=== PATIENT | male | born 1970 | race Asian ===

== ENCOUNTER 2017-10-27 09:00 | Emergency (ER) | payer SELFPAY ==
[~2017-10-27] VITALS: Ht 165.1 cm; Wt 69.0 kg
[2017-10-27] MEDS ORDERED: LORazepam 1 MG TABLET PO ONE (10:45)
[2017-10-27 11:08] VITALS: BP 129/85
== END 2017-10-27 11:14 | disposition home or self-care (01) ==
LOC: EMS 09:03
DX: F10.20 Alcohol dependence, uncomplicated (principal); I10 Essential (primary) hypertension; F12.90 Cannabis use, unspecified, uncomplicated; F17.210 Nicotine dependence, cigarettes, uncomplicated; Z02.89 Encounter for other administrative examinations; Y90.8 Blood alcohol level of 240 mg/100 ml or more
CPT/HCPCS: 99283; 99406

== ENCOUNTER 2018-05-30 11:23 | Emergency (ER) | payer MEDICAID ==
[~2018-05-30] VITALS: Ht 167.6 cm; Wt 72.7 kg
[2018-05-30 11:25] VITALS: BP 130/75
[2018-05-30] MEDS ORDERED: LISI-662 PO (11:35)
[2018-05-30] MEDS ORDERED: METF500T6 PO (11:35)
[2018-05-30 14:55] LABS: GLUCOSE,POINT OF CARE 288 MG/DL (70-110)
== END 2018-05-30 12:35 | disposition home or self-care (01) ==
LOC: EMS 11:23
DX: F10.10 Alcohol abuse, uncomplicated (principal); E11.9 Type 2 diabetes mellitus without complications; I10 Essential (primary) hypertension; F15.10 Other stimulant abuse, uncomplicated; Z79.899 Other long term (current) drug therapy
CPT/HCPCS: 99283